=== PATIENT | male | born 1980 | race African-American/Black ===

== ENCOUNTER 2017-11-12 15:04 | Emergency (ER) | payer SELFPAY ==
[~2017-11-12] VITALS: Ht 167.6 cm; Wt 74.0 kg
[2017-11-12 15:32] VITALS: BP 122/73
== END 2017-11-12 17:22 | disposition home or self-care (01) ==
LOC: ER 17:13
DX: S50.11XA Contusion of right forearm, initial encounter (principal); F12.10 Cannabis abuse, uncomplicated; X58.XXXA Exposure to other specified factors, initial encounter; Y93.H1 Activity, digging, shoveling and raking; Y92.89 Other specified places as the place of occurrence of the external cause; Y99.0 Civilian activity done for income or pay
CPT/HCPCS: 12001; 99281; 99283